=== PATIENT | female | born 1955 | race Caucasian/White ===

== ENCOUNTER 2021-04-15 21:56 | Emergency (ER) | payer BC, OTHER ==
[~2021-04-15] VITALS: Ht 152.4 cm; Wt 65.3 kg
[2021-04-15] MEDS ORDERED: ONDANSETRON HCL INJ 2MG/ML 2ML 2 MG/ML VIAL IV STA (22:05)
[2021-04-15] MEDS ORDERED: Morphine 4mg Syringe 4 MG/ML INJ IV ONE (22:15)
[2021-04-15] MEDS ORDERED: KETOROLAC TROMETHAMINE 30 MG/ML VIAL IV STA (22:43)
[2021-04-16] MEDS ORDERED: ACETAMINOPHEN 325 MG TAB PO ONE
[2021-04-16] MEDS ORDERED: IBUPROFEN600 MG PO ×2 (00:01→00:38)
[2021-04-16] MEDS ORDERED: ULTRACET TABLE1 EACH PO ×2 (00:01→00:38)
[2021-04-16 00:48] VITALS: BP 179/96
== END 2021-04-16 00:45 | disposition home or self-care (01) ==
LOC: ER 22:06
DX: S82.145A Nondisplaced bicondylar fracture of left tibia, initial encounter for closed fracture (principal); W17.89XA Other fall from one level to another, initial encounter; Y92.008 Other place in unspecified non-institutional (private) residence as the place of occurrence of the external cause
CPT/HCPCS: 29530; 73552; 73562; 73590; 99283; J1885; J2270; J2405